=== PATIENT | male | born 1965 | race Caucasian/White ===

== ENCOUNTER → 2019-07-21 08:46 | Outpatient (BNVA) | payer SELFPAY | PROVIDERS: Visit Provider Psychiatry & Neurology Psychiatry | DX: F43.10 Post-traumatic stress disorder, unspecified (principal); F51.05 Insomnia due to other mental disorder; F99 Mental disorder, not otherwise specified; F43.23 Adjustment disorder with mixed anxiety and depressed mood; F06.34 Mood disorder due to known physiological condition with mixed features; Z87.820 Personal history of traumatic brain injury | CPT/HCPCS: 99205 ==

== ENCOUNTER → 2019-08-18 08:03 | Outpatient (BNVA) | payer OTHER, MEDICARE, SELFPAY | PROVIDERS: Visit Provider Nurse Practitioner Psychiatric/Mental Health | DX: F43.10 Post-traumatic stress disorder, unspecified (principal); F41.1 Generalized anxiety disorder; F33.2 Major depressive disorder, recurrent severe without psychotic features; F15.21 Other stimulant dependence, in remission; F17.200 Nicotine dependence, unspecified, uncomplicated | CPT/HCPCS: 99213 ==

== ENCOUNTER 2019-08-25 11:13 | Emergency (ER) | payer OTHER, SELFPAY ==
[2019-08-25 11:33] VITALS: BP 107/76; PULSE 68; RESP 14; TEMP 36.8; O2SAT 98; BMI 28.5
--- NOTE | 2019-08-25 12:07 | XRR_ITS ---
PROCEDURE INFORMATION: Exam: XR Left Knee Exam date and time: 08/25/2019 12:23 PM Age: 54 years old Clinical indication: Prior surgery; Surgery date: 6+ months; Surgery type: Bilat knee scopes; Patient HX: C/O left knee pain. Pain 5/10; Additional info: Knee injury/pain TECHNIQUE: Imaging protocol: XR Left knee. Views: 3 views. COMPARISON: No relevant prior studies available. FINDINGS: Bones/joints: Osseous structures of the knee normal. No fracture. No joint effusion. Soft tissues unremarkable. Soft tissues: See Bones/joints finding. XR/XR knee LT 3V* [id number] IMPRESSION: Normal knee.
[2019-08-25 12:34] VITALS: O2SAT 95
--- NOTE | 2019-08-25 12:50 | W.ED.EXTPRO ---
HPI - Extremity Problem General: Chief complaint: Extremity Injury, Lower Stated complaint: l knee injury Time Seen by Provider: 08/25/19 12:30 History of Present Illness: HPI Narrative: 6 days ago patient accidentally struck his left knee on a piece of metal. Pain was so severe that it dropped him to the ground for a period of time. Patient states since that time he continues to have pain with range of motion and with weightbearing. He also describes crepitus when he begins his knee. MD Complaint: joint pain Onset (ago): day(s) Location: left and knee Quality: constant Radiation: none Relieving factors: nothing Exacerbating factors: range of motion, walking and palpation Associated symptoms: Reports no associated symptoms Review of Systems General: Reports: 10 or more systems reviewed and unremarkable except in HPI and below PFSH ED PFSH: Medical History Anxiety state, unspecified Insomnia Post traumatic stress disorder (PTSD) Social History Smoking and tobacco status: current every day smoker cigarettes Quit status (tobacco): considering quitting Second hand smoke exposure: No Current gender identity: Male Physical Exam Const: COMMON NORMALS: no acute distress, healthy appearing and well nourished GENERAL APPEARANCE: cooperative and well developed HENMT: COMMON NORMALS: normocephalic and atraumatic HEAD & SCALP: normal to inspection, normocephalic and atraumatic Eye: GENERAL EYE: appearance normal, both eyes and all related structures Neck/C-Spine: COMMON NORMALS: full ROM, no lymphadenopathy and no meningeal signs GENERAL: Yes normal visual inspection CERVICAL SPINE: Yes cervical ROM normal and Yes normal cervical lordosis Chest: COMMONS NORMALS: normal inspection of the chest and normal palpation of entire chest wall Resp: COMMON NORMALS: normal respiratory effort, clear to auscultation bilaterally and percussion normal AUSCULTATION: clear to auscultation bilaterally PERCUSSION: percussion normal Cardio: COMMON NORMALS: regular rate, regular rhythm, S1 normal heart sound present and S2 normal heart sound present JUGULAR VENOUS DISTENTION: no JVD PALPATION: normal PMI RATE: regular rate RHYTHM: regular rhythm HEART SOUNDS: S1 normal heart sound present and S2 normal heart sound present GI: COMMON NORMALS: Soft to palpation and No hepatosplenomegaly present INSPECTION: Yes normal to inspection PALPATION: Yes Soft to palpation and Yes No hepatosplenomegaly present PERCUSSION: normal to percussion : COMMON NORMALS: Yes no CVA tenderness BLADDER/KIDNEY EXAM: Yes no CVA tenderness Back/Pelvis: COMMON NORMALS: no CVA tenderness, thoracic and lumbar spine normal to inspection and thoraco-lumbar ROM normal Extremity: COMMON NORMALS: capillary refill normal, no joint enlargement and no clubbing, cyanosis or edema GENERAL: Yes weight-bearing difficulty LEFT LOWER EXTREMITY: Yes knee joint Left knee: Yes palpation (ttp) and Yes ROM (painful) Neuro: MENINGEAL SIGNS: Yes no meningeal signs Skin: COMMON NORMALS: no rashes or lesions noted, no wounds and turgor normal GENERAL SKIN EXAM: no rashes or lesions noted, elasticity normal and turgor normal LESIONS: no lesions RASHES: no rashes TRAUMA: no lacerations or abrasions HAIR: normal NAILS: normal Course Vital Signs: Vital signs: Vital Signs Temperature 98.2 F 08/25/19 11:33 Pulse Rate 68 08/25/19 11:33 Respiratory Rate 14 08/25/19 11:33 Blood Pressure 107/76 08/25/19 11:33 Pulse Oximetry 95 08/25/19 12:34 MDM - Extremity (Nontraumatic) Imaging Data^: Xray Ortho: My impression: No acute bony abnormality Discharge Plan Discharge Patient Disposition: Home, Self-Care Clinical Impression: Injury of left knee Qualifiers: Encounter type: initial encounter Qualified Code(s): S89.92XA - Unspecified injury of left lower leg, initial encounter Condition: Stable Prescriptions: New hydrocodone-acetaminophen 5-325 mg tablet 1 tab PO Q4H PRN (Reason: pain) Qty: 15 RF: 0 No Action meloxicam 7.5 mg tablet 7.5 mg PO DAILY RF: 0 sumatriptan succinate [Imitrex] 50 mg tablet 50 mg PO .COMPLEX PRNRF: 0 sildenafil [Viagra] 100 mg tablet 50 mg PO DAILY PRNRF: 0 alprazolam 2 mg tablet 2 mg PO TID PRN (Reason: anxiety) 15 Days Qty: 45 RF: 1 Discharge Orders: Discharge Order (Routine); Ordered 08/25/19 Ordered By: Rambo Perez Referrals: Iain Luna MD [Physician] - Coding Level of Care Code ED Public Safety Officer for Chg Fwd Exam Comprehensive
--- NOTE | 2019-08-25 14:21 | DCPLANNER ---
Addendum entered by Felicia Gibson 08/29/19 15:26: Patient has [facility], case packer and sealer called [facility] with [facility], informed her of the appointment. Original Note: manager quality was asked to schedule a follow up appointment for patient with ortho. manager quality called the ortho clinic, spoke with [place], gave clinic patients information. manager quality was told that patients information would be printed and reviewed. Clinic will call patient with appointment information.
--- NOTE | 2019-08-29 15:32 | DCPLANNER ---
Patient has a follow up appointment scheduled for , September 01, 2019 at 1:[address] Luna. Clinic will call patient with appointment information. manager mental health also called [facility] with [facility], with the appointment information.
--- NOTE | 2019-09-06 11:27 | DCPLANNER ---
Patient did attend follow up appointment scheduled for 09.01.19 with ortho.
== END 2019-08-25 13:19 | disposition home or self-care (01) ==
PROVIDERS: Emergency Provider Family Medicine
DX: S89.92XA Unspecified injury of left lower leg, initial encounter (principal); W22.8XXA Striking against or struck by other objects, initial encounter; F17.210 Nicotine dependence, cigarettes, uncomplicated
CPT/HCPCS: 12345; 29530; 73562; 99283; E0114

== ENCOUNTER → 2019-09-15 08:49 | Outpatient (BNVA) | payer OTHER, SELFPAY | PROVIDERS: Visit Provider Nurse Practitioner Psychiatric/Mental Health | DX: F43.10 Post-traumatic stress disorder, unspecified (principal); F41.1 Generalized anxiety disorder | CPT/HCPCS: 99212 ==

== ENCOUNTER → 2019-12-19 09:32 | Outpatient (BNVA) | payer OTHER, SELFPAY | PROVIDERS: Visit Provider Orthopaedic Surgery | DX: M19.012 Primary osteoarthritis, left shoulder (principal); M25.512 Pain in left shoulder | CPT/HCPCS: 73030 ==

== ENCOUNTER → 2020-03-08 11:01 | Outpatient (BNVA) | payer OTHER, SELFPAY | PROVIDERS: Visit Provider Nurse Practitioner Psychiatric/Mental Health | DX: F43.10 Post-traumatic stress disorder, unspecified (principal); F41.1 Generalized anxiety disorder | CPT/HCPCS: 99212 ==

== ENCOUNTER → 2020-06-11 13:20 | Outpatient (BNVA) | payer OTHER, SELFPAY | PROVIDERS: Visit Provider Nurse Practitioner Psychiatric/Mental Health | DX: F43.10 Post-traumatic stress disorder, unspecified (principal); F41.1 Generalized anxiety disorder | CPT/HCPCS: 99213 ==

== ENCOUNTER → 2020-11-06 07:39 | Outpatient (BNVA) | payer OTHER, SELFPAY | PROVIDERS: Visit Provider Nurse Practitioner Psychiatric/Mental Health | DX: F43.10 Post-traumatic stress disorder, unspecified (principal); F41.1 Generalized anxiety disorder | CPT/HCPCS: 99213 ==

== ENCOUNTER → 2021-01-24 08:45 | Outpatient (BNVA) | payer OTHER, SELFPAY | PROVIDERS: Visit Provider Nurse Practitioner Psychiatric/Mental Health | DX: F43.10 Post-traumatic stress disorder, unspecified (principal); F41.1 Generalized anxiety disorder | CPT/HCPCS: 99213 ==